=== PATIENT | female | born 1940 | race Hispanic/Latino ===

== ENCOUNTER 2017-08-27 19:40 | Inpatient (IN) | payer OTHER ==
[~2017-08-27] VITALS: Ht 144.8 cm; Wt 56.9 kg
[~2017-08-27 19:40] MED LIST: AMLO5TAB4 PO; ATOR40TA71 PO; BUSP15 PO; FENT25PAT TD; FLUO-125 PO; FURO40TA5 PO; INSU3INS3 SQ; LINA1TAB5 PO; LISI-617 PO; METO-391 PO; MIRT15TA6 PO; NITR0.4T SL; VENL-62 PO; XARELTO PO
[2017-08-27 21:03] LABS: APPEARANCE,URINE Clear (CLEAR); BILIRUBIN,URINE Negative (NEGATIVE); COLOR,URINE Yellow (YELLOW); GLUCOSE, URINE (UA) TRACE mg/dL (NEGATIVE); KETONES,URINE Negative (NEGATIVE); LEUKOCYTE ESTERASE ,URINE Negative (NEGATIVE); NITRATE,URINE Negative (NEGATIVE); OCCULT BLOOD,URINE Negative (NEGATIVE); PH,URINE 6.5 (5.0-8.0); PROTEIN,URINE Negative (NEGATIVE)
[2017-08-27 21:06] LABS: BASOPHILS % (AUTO) 0.1 % (0.0-5.0); EOSINOPHILS % (AUTO) 0.2 % (0.0-8.0); HEMATOCRIT 27.9 % (36-48); LYMPHOCYTES % (AUTO) 1.5 % (21.0-51.0); MEAN CORPUSCULAR HEMOGLOBIN 24.7 pg (27.0-33.0); MEAN CORPUSCULAR HGB CONC 32.5 g/dL (32.0-36.0); MEAN CORPUSCULAR VOLUME 76.1 fL (79-99); MONOCYTES % (AUTO) 3.5 % (3.0-13.0); NEUTROPHILS % (AUTO) 94.7 % (40.0-77.0); PLATELET COUNT (AUTO) 418 K/uL (130-400); RED BLOOD CELL COUNT(AUTO) 3.67 MIL/uL (4.00-5.50); RED CELL DISTRIBUTION WIDTH 17.9 % (11.0-15.5); WHITE BLOOD COUNT (AUTO) 14.4 K/uL (4.8-10.8)
[2017-08-27 21:10] LABS: CARBON DIOXIDE 33 mmol/L (21-32); CHLORIDE 94 mmol/L (101-111); CREATININE 0.9 mg/dL (0.5-1.5); GLOMERULAR FILTR. RATE CALC 65 mL/min (>60); GLUCOSE,RANDOM 157 mg/dL (70-105); POTASSIUM 3.5 mmol/L (3.5-5.1); SODIUM SERUM 135 mmol/L (136-145); UREA NITROGEN, BLOOD 11 mg/dL (7-18)
[2017-08-27 21:10] LABS: AMPHET/METH SCREEN,URINE NEGATIVE (NEGATIVE); BARBITURATE SCREEN, URINE NEGATIVE (NEGATIVE); BENZODIAZEPINES SCREEN,URINE NEGATIVE (NEGATIVE); CANNABINOID SCREEN,URINE NEGATIVE (NEGATIVE); COCAINE SCREEN,URINE NEGATIVE (NEGATIVE); OPIATE SCREEN,URINE NEGATIVE (NEGATIVE); PHENCYCLIDINE SCREEN,URINE NEGATIVE (NEGATIVE)
[2017-08-27 21:16] LABS: INR 1.22 (0.85-1.15); PARTIAL THROMBOPLASTIN TIME 32.7 SEC (26.3-35.5); PROTHROMBIN TIME 12.5 SEC (9.6-11.6)
[2017-08-27 21:24] LABS: ALANINE AMINOTRANSFERASE 20 U/L (12-78); ALBUMIN 1.9 g/dL (3.5-5.0); AMMONIA 11 umol/L (11-32); ASPARTATE AMINOTRANSFERASE 26 U/L (10-37); BILIRUBIN,TOTAL 0.4 mg/dL (0.2-1.0); CREATINE KINASE MB < 0.5 ng/mL (0.5-3.6); CREATINE KINASE, TOTAL 33 U/L (21-232); TOTAL PROTEIN, SERUM 8.1 g/dL (6.0-8.3)
[2017-08-27 21:25] LABS: BACTERIA,URINE None Seen /HPF (None Seen); RBC,URINE None Seen /HPF (0-1); WBC,URINE None Seen /HPF (0-1)
[2017-08-27 21:33] LABS: B-TYPE NATRIURETIC PEPTIDE 561 pg/mL (0-100)
[2017-08-27] MEDS ORDERED: LEVOFLOXACIN 500 MG/D5W 100 ML 100 ML ONE (22:27)
[2017-08-27] MEDS ORDERED: CEFTRIAXONE SODIUM 1 GM ONE (22:28)
[2017-08-28] MEDS ORDERED: ENOXAPARIN SODIUM 40 MG/0.4 ML SYRINGE SQ ONE (00:26)
[2017-08-28] MEDS ORDERED: ACETAMINOPHEN ELIXIR 650 MG/20.3 ML UDCUP ONE (00:26)
[2017-08-28 07:02] LABS: BASOPHILS % (AUTO) 0.4 % (0.0-5.0); HEMATOCRIT 23.7 % (36-48); LYMPHOCYTES % (AUTO) 4.1 % (21.0-51.0); MEAN CORPUSCULAR HEMOGLOBIN 26.1 pg (27.0-33.0); MEAN CORPUSCULAR HGB CONC 34.2 g/dL (32.0-36.0); MEAN CORPUSCULAR VOLUME 76.3 fL (79-99); NEUTROPHILS % (AUTO) 91.5 % (40.0-77.0); PLATELET COUNT (AUTO) 353 K/uL (130-400); RED BLOOD CELL COUNT(AUTO) 3.11 MIL/uL (4.00-5.50); RED CELL DISTRIBUTION WIDTH 18.1 % (11.0-15.5); WHITE BLOOD COUNT (AUTO) 16.6 K/uL (4.8-10.8)
[2017-08-28 07:26] LABS: ALBUMIN 1.6 g/dL (3.5-5.0); BILIRUBIN,TOTAL 0.4 mg/dL (0.2-1.0); CREATININE 0.9 mg/dL (0.5-1.5); POTASSIUM 3.4 mmol/L (3.5-5.1); TOTAL PROTEIN, SERUM 7.1 g/dL (6.0-8.3)
[2017-08-28] MEDS ORDERED: INSULIN HUMULIN R 100 UNIT/ML 3ML ONE ×2 (08:45→12:43)
[2017-08-28] MEDS ORDERED: ACETAMINOPHEN 325 MG TAB ONE (08:52)
[2017-08-28] MEDS: IPRATROPIUM/ALBUTEROL SULFATE 3 ML SOLUTION IH SCH (18:00)
[2017-08-28 18:37] VITALS: BP 145/71
[2017-08-28] MEDS ORDERED: DEXTROSE 50%-WATER 50 ML DISP.SYRIN IV PRN (18:45)
[2017-08-28] MEDS ORDERED: GLUCAGON 1MG KIT 1 MG ML IM PRN (18:45)
[2017-08-28 20:00] VITALS: BP 157/68
[2017-08-28] MEDS ORDERED: INSULIN HUMULIN R 100 UNIT/ML 3ML SQ SCH (21:00)
[2017-08-28] MEDS ORDERED: CEFTRIAXONE SODIUM 1 GM IV SCH (22:00)
[2017-08-28] MEDS ORDERED: SODIUM CHLORIDE 0.9% 500ML 500 ML IV ONE (22:19)
[2017-08-28] MEDS: CEFTRIAXONE SODIUM 1 GM IVP SCH (22:29)
[2017-08-28] MEDS: ACETAMINOPHEN 325 MG TAB PO PRN (22:30)
[2017-08-28] MEDS: LEVOFLOXACIN 500 MG/D5W 100 ML 100 ML IV SCH (22:30)
[2017-08-28] MEDS: ENOXAPARIN SODIUM 40 MG/0.4 ML SYRINGE SQ SCH (22:38)
[2017-08-28 23:51] VITALS: BP 149/62
[2017-08-29] MEDS: IPRATROPIUM/ALBUTEROL SULFATE 3 ML SOLUTION IH SCH ×5 (00:50→23:26)
[2017-08-29 03:51] VITALS: BP 120/56
[2017-08-29 05:10] LABS: BASOPHILS % (AUTO) 0.2 % (0.0-5.0); EOSINOPHILS % (AUTO) 0.5 % (0.0-8.0); LYMPHOCYTES % (AUTO) 9.7 % (21.0-51.0); MEAN CORPUSCULAR HEMOGLOBIN 25.5 pg (27.0-33.0); MEAN CORPUSCULAR HGB CONC 33.3 g/dL (32.0-36.0); MEAN CORPUSCULAR VOLUME 76.4 fL (79-99); MONOCYTES % (AUTO) 5.5 % (3.0-13.0); NEUTROPHILS % (AUTO) 84.1 % (40.0-77.0); PLATELET COUNT (AUTO) 374 K/uL (130-400); RED BLOOD CELL COUNT(AUTO) 3.14 MIL/uL (4.00-5.50); RED CELL DISTRIBUTION WIDTH 17.7 % (11.0-15.5); WHITE BLOOD COUNT (AUTO) 10.9 K/uL (4.8-10.8)
[2017-08-29 05:30] LABS: ALBUMIN 1.7 g/dL (3.5-5.0); BILIRUBIN,TOTAL 0.2 mg/dL (0.2-1.0); POTASSIUM 3.8 mmol/L (3.5-5.1); TOTAL PROTEIN, SERUM 7.3 g/dL (6.0-8.3)
[2017-08-29 07:54] VITALS: BP 156/54
[2017-08-29] MEDS ORDERED: POTASSIUM CHLORIDE 20 MEQ ERTAB PO PRN (08:15)
[2017-08-29] MEDS ORDERED: POTASSIUM CHLORIDE 10% ELIXIR 20 MEQ/15 ML UDCUP PO PRN (08:15)
[2017-08-29] MEDS ORDERED: LIDOCAINE HCL-MPF 1% 2ML VIAL IVP PRN (08:15)
[2017-08-29] MEDS ORDERED: POTASSIUM CHLORIDE 20MEQ/100ML 100 ML IV PRN (08:15)
[2017-08-29] MEDS ORDERED: FENTANYL 12 MCG TD SCH (09:00)
[2017-08-29] MEDS ORDERED: FENTANYL 25 MCG/HR PATCH TD SCH (09:00)
[2017-08-29] MEDS ORDERED: HYDR-85 PO (09:33)
[2017-08-29] MEDS ORDERED: ESOM20CA39 PO (09:33)
[2017-08-29] MEDS ORDERED: FENT-77 TD (09:33)
[2017-08-29] MEDS ORDERED: FURO40TA5 PO (09:33)
[2017-08-29] MEDS ORDERED: GABA-531 PO (09:33)
[2017-08-29] MEDS ORDERED: INSU100I26 SQ (09:33)
[2017-08-29] MEDS: ENOXAPARIN SODIUM 40 MG/0.4 ML SYRINGE SQ SCH (09:44)
[2017-08-29 11:34] VITALS: BP 123/58
[2017-08-29] MEDS: FLUOXETINE HCL 10 MG CAPSULE PO SCH (12:26)
[2017-08-29] MEDS: GABAPENTIN 300 MG CAPSULE PO SCH ×2 (12:26→20:08)
[2017-08-29] MEDS: LISINOPRIL 5 MG TABLET PO SCH (12:26)
[2017-08-29] MEDS: AMLODIPINE BESYLATE 5 MG TAB PO SCH (12:26)
[2017-08-29] MEDS: FUROSEMIDE 40 MG TABLET PO SCH (12:26)
[2017-08-29] MEDS: INSULIN LISPRO 100 UNIT/ML 3ML SQ SCH ×2 (12:44→17:23)
[2017-08-29 16:42] VITALS: BP 114/61
[2017-08-29] MEDS: HYDROCODONE/IBUPROFEN 7.5/200 MG TAB PO SCH (17:22)
[2017-08-29] MEDS: RIVAROXABAN 20 MG TABLET PO SCH (19:00)
[2017-08-29 20:00] VITALS: BP 117/56
[2017-08-29] MEDS: ACETAMINOPHEN 325 MG TAB PO PRN (20:07)
[2017-08-29] MEDS: METFORMIN HCL 500 MG TABLET PO SCH (20:07)
[2017-08-29] MEDS: BUSPIRONE HCL 5 MG TABLET PO SCH (20:08)
[2017-08-29] MEDS: LINAGLIPTIN 5 MG TABLET PO SCH (20:08)
[2017-08-29] MEDS: **HM** TOPROL XL 50MG PO SCH (20:09)
[2017-08-29] MEDS ORDERED: VENLAFAXINE HCL XR 37.5 MG CAP PO SCH (21:00)
[2017-08-29] MEDS ORDERED: MIRTAZAPINE 15 MG TABLET PO SCH (21:00)
[2017-08-29] MEDS ORDERED: ATORVASTATIN CALCIUM 40 MG TABLET PO SCH (21:00)
[2017-08-29 23:44] VITALS: BP 111/46
[2017-08-29] MEDS: LEVOFLOXACIN 500 MG/D5W 100 ML 100 ML IV SCH (23:54)
[2017-08-29] MEDS: CEFTRIAXONE SODIUM 1 GM IVP SCH (23:54)
[2017-08-30 04:00] VITALS: BP 114/68
[2017-08-30] MEDS: IPRATROPIUM/ALBUTEROL SULFATE 3 ML SOLUTION IH SCH ×3 (06:30→18:14)
[2017-08-30] MEDS ORDERED: PANTOPRAZOLE SODIUM 40 MG TABLET.DR PO SCH (07:30)
[2017-08-30 07:50] VITALS: BP 104/45
[2017-08-30] MEDS: INSULIN LISPRO 100 UNIT/ML 3ML SQ SCH ×2 (08:00→16:30)
[2017-08-30] MEDS ORDERED: INSULIN GLARGINE 100 UNITS/ML 10 ML VIAL SQ SCH (08:00)
[2017-08-30] MEDS ORDERED: LACTULOSE 20 GM/30 ML UDCUP PO PRN (08:15)
[2017-08-30 08:58] LABS: BASOPHILS % (AUTO) 0.2 % (0.0-5.0); EOSINOPHILS % (AUTO) 1.5 % (0.0-8.0); LYMPHOCYTES % (AUTO) 7.1 % (21.0-51.0); MEAN CORPUSCULAR HEMOGLOBIN 25.1 pg (27.0-33.0); MEAN CORPUSCULAR HGB CONC 32.8 g/dL (32.0-36.0); MEAN CORPUSCULAR VOLUME 76.4 fL (79-99); MONOCYTES % (AUTO) 5.3 % (3.0-13.0); NEUTROPHILS % (AUTO) 85.9 % (40.0-77.0); PLATELET COUNT (AUTO) 344 K/uL (130-400); RED BLOOD CELL COUNT(AUTO) 3.15 MIL/uL (4.00-5.50); RED CELL DISTRIBUTION WIDTH 17.4 % (11.0-15.5); WHITE BLOOD COUNT (AUTO) 9.9 K/uL (4.8-10.8)
[2017-08-30] MEDS ORDERED: FENTANYL 25 MCG/HR PATCH TD SCH (09:00)
[2017-08-30] MEDS: **HM** TOPROL XL 50MG PO SCH (09:00)
[2017-08-30] MEDS: AMLODIPINE BESYLATE 5 MG TAB PO SCH (09:00)
[2017-08-30] MEDS ORDERED: FENTANYL 12 MCG TP SCH (09:00)
[2017-08-30] MEDS: LISINOPRIL 5 MG TABLET PO SCH (09:00)
[2017-08-30 09:06] LABS: CREATININE 1.3 mg/dL (0.5-1.5); POTASSIUM 3.9 mmol/L (3.5-5.1)
[2017-08-30] MEDS: LINAGLIPTIN 5 MG TABLET PO SCH (09:32)
[2017-08-30] MEDS: METFORMIN HCL 500 MG TABLET PO SCH (09:32)
[2017-08-30] MEDS: HYDROCODONE/IBUPROFEN 7.5/200 MG TAB PO SCH (09:32)
[2017-08-30] MEDS: BUSPIRONE HCL 5 MG TABLET PO SCH (09:32)
[2017-08-30] MEDS: FUROSEMIDE 40 MG TABLET PO SCH (09:33)
[2017-08-30] MEDS: FLUOXETINE HCL 10 MG CAPSULE PO SCH (09:33)
[2017-08-30] MEDS: GABAPENTIN 300 MG CAPSULE PO SCH (09:33)
[2017-08-30 11:08] VITALS: BP 129/56
[2017-08-30 17:17] VITALS: BP 102/46
[2017-08-30] MEDS: RIVAROXABAN 20 MG TABLET PO SCH (18:27)
== END 2017-08-30 19:05 | disposition home health service (06) | DRG 190 ==
LOC: EDH 19:40 → EDHIP 23:10 → OBSVTOIN 23:10 → 3BH 08-28 18:04
PROVIDERS: ADMIT Internal Medicine; ATTEND Internal Medicine
DX: J44.0 Chronic obstructive pulmonary disease with (acute) lower respiratory infection (principal); J18.9 Pneumonia, unspecified organism; E11.22 Type 2 diabetes mellitus with diabetic chronic kidney disease; E11.42 Type 2 diabetes mellitus with diabetic polyneuropathy; E44.1 Mild protein-calorie malnutrition; E11.51 Type 2 diabetes mellitus with diabetic peripheral angiopathy without gangrene; E78.5 Hyperlipidemia, unspecified; I10 Essential (primary) hypertension; Z87.891 Personal history of nicotine dependence; I25.10 Atherosclerotic heart disease of native coronary artery without angina pectoris; N18.9 Chronic kidney disease, unspecified; D53.9 Nutritional anemia, unspecified; F03.90 Unspecified dementia, unspecified severity, without behavioral disturbance, psychotic disturbance, mood disturbance, and anxiety; Z89.612 Acquired absence of left leg above knee
CPT/HCPCS: 36415; 70450; 71045; 80048; 80053; 80305; 81001; 82140; 82550; 82553; 82947; 82948; 83605; 83880; 85025; 85610; 85730; 87040; 87186; 92610; 93005; 94640; 94664; A4218; J0696; J1650; J1815; J1956; J7040

== ENCOUNTER 2018-09-03 13:01 | Inpatient (IN) | payer OTHER | END 2018-09-08 14:42 | LOC: EDH 13:01 → EDHIP 16:50 → 3BH 20:46 → EDHIP 20:58 → 4BH 22:53 | DX: E11.649 Type 2 diabetes mellitus with hypoglycemia without coma (principal); J18.9 Pneumonia, unspecified organism; N39.0 Urinary tract infection, site not specified; E11.51 Type 2 diabetes mellitus with diabetic peripheral angiopathy without gangrene; I10 Essential (primary) hypertension; I25.10 Atherosclerotic heart disease of native coronary artery without angina pectoris ==

== ENCOUNTER 2018-12-25 04:01 | Observation (INO) | payer OTHER ==
[~2018-12-25] VITALS: Ht 152.4 cm; Wt 53.4 kg
[~2018-12-25 04:01] MED LIST changes: +ACET-2743 PO; -AMLO5TAB4 PO; -ATOR40TA71 PO; -BUSP15 PO; +BUSP5TAB3 PO; +FAMO20TA8 PO; +FENT12PAT TD; -FENT25PAT TD; -FLUO-125 PO; -FURO40TA5 PO; +GABA-531 PO; +GUAI-1211 PO; +INSU100I26 SQ; -INSU3INS3 SQ; -LINA1TAB5 PO; -LISI-617 PO; +LUBI8CAP PO; +MEMA5TAB15 PO; -METO-391 PO; -NITR0.4T SL; +PRED5TAB44 PO; +RIVA20TA PO; -VENL-62 PO; -XARELTO PO
[2018-12-25 04:35] LABS: BASOPHILS % (AUTO) 0.1 % (0.0-5.0); EOSINOPHILS % (AUTO) 0.2 % (0.0-8.0); HEMATOCRIT 28.7 % (36-48); LYMPHOCYTES % (AUTO) 5.3 % (21.0-51.0); MEAN CORPUSCULAR HEMOGLOBIN 29.2 pg (27.0-33.0); MEAN CORPUSCULAR HGB CONC 33.4 g/dL (32.0-36.0); MEAN CORPUSCULAR VOLUME 87.3 fL (79-99); MONOCYTES % (AUTO) 6.7 % (3.0-13.0); NEUTROPHILS % (AUTO) 87.7 % (40.0-77.0); PLATELET COUNT (AUTO) 315 K/uL (130-400); RED BLOOD CELL COUNT(AUTO) 3.28 MIL/uL (4.00-5.50); WHITE BLOOD COUNT (AUTO) 15.1 K/uL (4.8-10.8)
[2018-12-25] MEDS ORDERED: ONDANSETRON HCL 4 MG/2 ML VIAL ONE (04:41)
[2018-12-25] MEDS ORDERED: ACETAMINOPHEN 650 MG SUPPOSITORY RC ONE (04:42)
[2018-12-25 04:43] LABS: CREATININE 1.2 mg/dL (0.5-1.5); POTASSIUM 3.5 mmol/L (3.5-5.1)
[2018-12-25 04:47] LABS: ALBUMIN 1.8 g/dL (3.5-5.0); BILIRUBIN,DIRECT 0.2 mg/dL (0.0-0.3); BILIRUBIN,TOTAL 0.4 mg/dL (0.2-1.0); TOTAL PROTEIN, SERUM 7.5 g/dL (6.0-8.3)
[2018-12-25 05:07] LABS: APPEARANCE,URINE Cloudy (CLEAR); BILIRUBIN,URINE Negative (NEGATIVE); COLOR,URINE Yellow (YELLOW); GLUCOSE, URINE (UA) Negative (NEGATIVE); KETONES,URINE Trace mg/dL (NEGATIVE); LEUKOCYTE ESTERASE ,URINE Large (NEGATIVE); NITRATE,URINE Negative (NEGATIVE); OCCULT BLOOD,URINE Trace (NEGATIVE); PH,URINE 5.5 (5.0-8.0); PROTEIN,URINE POS 1+ mg/dL (NEGATIVE)
[2018-12-25 05:08] LABS: B-TYPE NATRIURETIC PEPTIDE 836 pg/mL (0-100)
[2018-12-25 05:17] LABS: BACTERIA,URINE Moderate /HPF (None Seen); WBC,URINE 26-50 /HPF (0-1); YEAST,URINE BUDDING Many /HPF (None Seen)
[2018-12-25 05:18] LABS: SQUAMOUS EPITHELIAL CELL,UR Moderate /HPF (0-2)
[2018-12-25] MEDS ORDERED: CLINDAMYCIN 600 MG/D5% WATER 50 ML IV ONE (05:40)
[2018-12-25] MEDS ORDERED: INSULIN HUMULIN R 100 UNIT/ML 3ML ONE (07:47)
[2018-12-25 08:12] VITALS: BP 121/51
[2018-12-25] MEDS ORDERED: TRAM50TA4 PO (08:14)
[2018-12-25] MEDS ORDERED: LINE600T14 PO (08:14)
[2018-12-25] MEDS ORDERED: GUAIFENESIN-CODEINE 5 ML SYRUP PO PRN (08:15)
[2018-12-25] MEDS ORDERED: ACETAMINOPHEN EXTRA STRENGTH 500 MG TABLET PO PRN (08:15)
--- NOTE | 2018-12-25 08:15 | NUR ---
Dr. Gonzalez rounding with patient. Patient arrived from ER in stable condition with at bedside. Pt/ oriented to room. Bed placed in lowest position. Call light placed within reach. History obtained mostly from . Patient is alert and awake in no apparent distress. Wound pictures and measurements taken and placed in chart.
[2018-12-25] MEDS ORDERED: CARB100C4 PO (08:28)
[2018-12-25] MEDS ORDERED: CLOP75TA32 PO (08:28)
[2018-12-25] MEDS ORDERED: FURO40TA5 PO (08:28)
[2018-12-25] MEDS ORDERED: LISI40TA4 PO (08:28)
[2018-12-25] MEDS ORDERED: NITR0.4T50 SL (08:28)
[2018-12-25] MEDS ORDERED: ATOR40TA69 PO (08:28)
[2018-12-25] MEDS ORDERED: PRED5TAB44 PO (08:28)
[2018-12-25] MEDS ORDERED: NITROGLYCERIN 0.4 MG SL TAB SL SCH (08:30)
[2018-12-25 08:33] LABS: INR 1.02 (0.85-1.15); PARTIAL THROMBOPLASTIN TIME 48.4 SEC (26.3-35.5); PROTHROMBIN TIME 10.7 SEC (9.6-11.6)
[2018-12-25] MEDS: CLOPIDOGREL BISULFATE 75 MG TAB PO SCH (09:00)
[2018-12-25] MEDS: LUBIPROSTONE 8 MCG PO SCH (09:00)
[2018-12-25] MEDS: RIVAROXABAN 20 MG TABLET PO SCH (09:00)
[2018-12-25] MEDS: CARBAMAZEPINE 200 MG TABLET PO SCH ×2 (09:00→21:00)
[2018-12-25] MEDS: LISINOPRIL 40 MG TABLET PO SCH ×3 (09:00→21:00)
[2018-12-25] MEDS ORDERED: ONDANSETRON ODT 4 MG TAB PO PRN (10:00)
[2018-12-25] MEDS: FUROSEMIDE 40 MG TABLET PO SCH (10:58)
[2018-12-25] MEDS: FAMOTIDINE 20MG TAB 20 MG TAB PO SCH (10:58)
[2018-12-25] MEDS: GABAPENTIN 300 MG CAPSULE PO SCH ×2 (10:58→21:00)
[2018-12-25] MEDS: PREDNISONE 5 MG TABLET PO SCH (11:01)
[2018-12-25] MEDS: MEMANTINE HCL 5 MG TABLET PO SCH (11:01)
[2018-12-25] MEDS: CEFEPIME HCL 2 GM VIAL IVP SCH ×2 (11:02→21:08)
[2018-12-25 11:10] VITALS: BP 135/60
[2018-12-25] MEDS ORDERED: POTASSIUM CHLORIDE 20MEQ/100ML 100 ML IV PRN (12:15)
[2018-12-25] MEDS ORDERED: INSULIN GLARGINE 100 UNITS/ML 10 ML VIAL SQ SCH (12:15)
[2018-12-25] MEDS ORDERED: POTASSIUM CHLORIDE 20 MEQ ERTAB PO PRN (12:15)
[2018-12-25] MEDS ORDERED: LIDOCAINE HCL-MPF 1% 2ML VIAL IVP PRN (12:15)
--- NOTE | 2018-12-25 13:26 | NUR ---
DC PLAN VISITED WITH PATIENT AND SPOUSE. PATIENT LIVES WITH SPOUSE. MATILDA SIGNED FOR [facility]. PER MD WILL NEED 2 WEEKS ABX. PENDING [facility] LINE. Addendum: 12/25/18 at 1327 by CAROLE HU RN CM Amended: Links added.
[2018-12-25] MEDS: CLINDAMYCIN 300 MG/D5W 50 ML 50 ML IV SCH ×2 (15:08→22:46)
[2018-12-25] MEDS: POTASSIUM CHLORIDE 10% ELIXIR 20 MEQ/15 ML UDCUP PO PRN (15:16)
[2018-12-25 15:31] VITALS: BP 158/85
--- NOTE | 2018-12-25 15:56 | NUR ---
[facility] CALLED SAID THAT PATIENT WANTS A PRIVATE ROOM NOT ABLE TO PROVIDE. PATIENT IN PROCEDURE. CALLED SPOUSE TO SEE ABOUT OTHER FACILITY. NO ANSWER LEFT MESSAGE. Addendum: 12/25/18 at 1558 by CAROLE HU RN CM Amended: Links added.
[2018-12-25] MEDS: INSULIN LISPRO 100 UNIT/ML 3ML SQ SCH (17:13)
--- NOTE | 2018-12-25 19:25 | NUR ---
PT WAKES UP AND OPENS EYES UPON SHAKING, NOT SPONTANEOUSLY. 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 WILL CONTINUE TO MONITOR. VITAL SIGNS STABLE.
[2018-12-25 20:15] VITALS: BP 101/47
--- NOTE | 2018-12-25 20:30 | NUR ---
UNABLE TO GIVE ORAL SCHEDULED MEDICATIONS. PT TOO SLEEPY AND RISK FOR ASPIRATION. WILL CONTINUE TO MONITOR AND WILL INFORM DR. AVILA.
[2018-12-25] MEDS ORDERED: MIRTAZAPINE 15 MG TABLET PO SCH (21:00)
[2018-12-25] MEDS ORDERED: ATORVASTATIN CALCIUM 40 MG TABLET PO SCH (21:00)
[2018-12-25] MEDS ORDERED: TRAMADOL HCL 50 MG TABLET PO SCH (21:00)
--- NOTE | 2018-12-25 21:00 | NUR ---
DEEJAY RN PICC LINE NURSE IN TO INSERT PICC LINE. TIME OUT DONE AT BEDSIDE.
--- NOTE | 2018-12-25 21:56 | NUR ---
DR. CORREA IN TO SEE PATIENT AND WOUND CARE/DRESSINGS CHANGED.
[2018-12-25 23:44] VITALS: BP 159/67
[2018-12-26] VITALS (21 sets, daily range): BP systolic 117–166; BP diastolic 47–66
[2018-12-26 04:21] LABS: ALBUMIN 1.6 g/dL (3.5-5.0); BILIRUBIN,TOTAL 0.3 mg/dL (0.2-1.0); CREATININE 1.1 mg/dL (0.5-1.5); POTASSIUM 3.7 mmol/L (3.5-5.1); TOTAL PROTEIN, SERUM 6.9 g/dL (6.0-8.3)
[2018-12-26 04:30] LABS: HEMATOCRIT 29.7 % (36-48); MEAN CORPUSCULAR HEMOGLOBIN 27.9 pg (27.0-33.0); MEAN CORPUSCULAR HGB CONC 31.4 g/dL (32.0-36.0); MEAN CORPUSCULAR VOLUME 88.7 fL (79-99); PLATELET COUNT (AUTO) 280 K/uL (130-400); RED BLOOD CELL COUNT(AUTO) 3.35 MIL/uL (4.00-5.50); WHITE BLOOD COUNT (AUTO) 14.8 K/uL (4.8-10.8)
[2018-12-26] MEDS: CLINDAMYCIN 300 MG/D5W 50 ML 50 ML IV SCH ×2 (05:38→15:03)
--- NOTE | 2018-12-26 05:47 | NUR ---
PT AWAKE , ALERT AND ORIENTED TO NAME AND PLACE. CONVERSING WITH HER SPOUSE AT BEDSIDE. STATES SHE FEELS TIRED BUT HAD A GOOD NIGHT REST.
[2018-12-26] MEDS: INSULIN LISPRO 100 UNIT/ML 3ML SQ SCH ×2 (06:00→18:43)
--- NOTE | 2018-12-26 06:50 | NUR ---
HELD SCHEDULED INSULIN DOSE FOR THIS MORNING--PT WILL BE GOING FOR SURGERY IN A FEW MINUTES AND NOT AT 5PM. INFORMED SPOUSE AND PT...VERBALIZED UNDERSTANDING.
--- NOTE | 2018-12-26 06:58 | NUR ---
TAKEN TO OR VIA BED. SPOUSE AT BEDSIDE.
[2018-12-26] MEDS ORDERED: SODIUM CHLORIDE 0.9% 1000ML 1,000 ML IV ONE (07:05)
--- NOTE | 2018-12-26 07:05 | NUR ---
IV ACCESS: DR. CORREA MADE AWARE OF GOOD BLOOD RETURN TO PICC LINE, REVIEWED CXR AND OK TO USE PICC LINE
[2018-12-26] MEDS ORDERED: LIDOCAINE HCL MPF 1% 5ML VIAL ONE (07:23)
[2018-12-26] MEDS ORDERED: PROPOFOL 10 MG/ML 20ML VIAL IV ONE (07:24)
[2018-12-26] MEDS ORDERED: INSULIN GLARGINE 100 UNITS/ML 10 ML VIAL SQ SCH (07:30)
[2018-12-26] MEDS ORDERED: LIDOCAINE HCL 1% MDV 50ML VIAL ONE (07:32)
[2018-12-26] MEDS ORDERED: BUPIVACAINE/PF 0.5% 30ML VIAL ONE (07:32)
[2018-12-26] MEDS: CARBAMAZEPINE 200 MG TABLET PO SCH (09:00)
[2018-12-26] MEDS: LUBIPROSTONE 8 MCG PO SCH (09:00)
[2018-12-26] MEDS: CLOPIDOGREL BISULFATE 75 MG TAB PO SCH (09:00)
[2018-12-26] MEDS: RIVAROXABAN 20 MG TABLET PO SCH (09:00)
[2018-12-26] MEDS: CEFEPIME HCL 2 GM VIAL IVP SCH (10:36)
[2018-12-26] MEDS: FAMOTIDINE 20MG TAB 20 MG TAB PO SCH (10:37)
[2018-12-26] MEDS: MEMANTINE HCL 5 MG TABLET PO SCH (10:37)
[2018-12-26] MEDS: GABAPENTIN 300 MG CAPSULE PO SCH (10:38)
[2018-12-26] MEDS: PREDNISONE 5 MG TABLET PO SCH (10:38)
[2018-12-26] MEDS: FUROSEMIDE 40 MG TABLET PO SCH (10:38)
[2018-12-26] MEDS: LISINOPRIL 40 MG TABLET PO SCH (10:48)
--- NOTE | 2018-12-26 11:25 | NUR ---
As per Dr. Mccord, wound vac duration 1mth. Notified Patient transferring to [facility] for continuation of care.
--- NOTE | 2018-12-26 15:42 | NUR ---
RODRIGUEZ ZACARIAS CALLED AT 1510 SAID PATIENT IS ACCEPTED. ASKED DIRECTOR OF SECOND FLOOR IF WOUND VAC CAN BE LENT UNTIL TOMORROW. SAID OKAY. PER RELL WILL BRING WOUND VAC BACK. PATIENT WILL GO VIA EMS DUE TO SAFETY AMPUTATION TO LEFT NEW DEBRIDEMENT TO THE RIGHT. NOT ABLE TO PLACE WEIGHT ON NEW WOUND. PASRR SENT. Addendum: 12/26/18 at 1544 by CAROLE HU RN CM Amended: Links added.
[2018-12-26] MEDS ORDERED: HYDROMORPHONE HCL 0.5 MG/0.5 ML ML IVP PRN (16:15)
[2018-12-26] MEDS ORDERED: MORPHINE SULFATE 2 MG/ML 1ML SYG IVP PRN (16:15)
[2018-12-26] MEDS: POTASSIUM CHLORIDE 10% ELIXIR 20 MEQ/15 ML UDCUP PO PRN (17:45)
--- NOTE | 2018-12-26 18:15 | NUR ---
Nikolas Brush notified of patient transfer.
--- NOTE | 2018-12-26 18:20 | NUR ---
Report called to Robin Marquez LVN at [facility]. Patient PCP Dr. Gonzalez. Notified antibiotics to continue for 2 weeks. Antibiotics reviewed with nurse. Notified patient will be going with wound vac. RICKIE Hernandez Director aware.
--- NOTE | 2018-12-26 18:49 | NUR ---
Dr. Gonzalez notified of Blood sugar 467. Patient continues sleeping and not eaten since lunch time. No new orders.
--- NOTE | 2018-12-26 19:30 | NUR ---
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 at bedside. Notified will continue same regimen at [facility]. Patient taken with wound vac.
== END 2018-12-26 20:15 ==
LOC: EDH 04:01 → INTOOBSV 05:35 → EDHIP 05:35 → 2DH 07:43 → 2AH 07:48
PROVIDERS: ADMIT Internal Medicine; ATTEND Internal Medicine
DX: E11.621 Type 2 diabetes mellitus with foot ulcer (principal); E11.51 Type 2 diabetes mellitus with diabetic peripheral angiopathy without gangrene; E11.69 Type 2 diabetes mellitus with other specified complication; E78.5 Hyperlipidemia, unspecified; I10 Essential (primary) hypertension; I25.10 Atherosclerotic heart disease of native coronary artery without angina pectoris; I99.8 Other disorder of circulatory system; L03.115 Cellulitis of right lower limb; L97.419 Non-pressure chronic ulcer of right heel and midfoot with unspecified severity; L97.519 Non-pressure chronic ulcer of other part of right foot with unspecified severity; M72.6 Necrotizing fasciitis; M86.9 Osteomyelitis, unspecified; Z86.73 Personal history of transient ischemic attack (TIA), and cerebral infarction without residual deficits; Z89.519 Acquired absence of unspecified leg below knee; Z95.0 Presence of cardiac pacemaker; Z95.1 Presence of aortocoronary bypass graft; Z79.899 Other long term (current) drug therapy; Z88.0 Allergy status to penicillin; Z88.1 Allergy status to other antibiotic agents
CPT/HCPCS: 11043; 11046; 36415 ×2; 70450; 71045 ×3; 73630; 80048; 80053; 80076; 81001; 82550; 82948 ×7; 83605; 83880; 84484; 85025; 85027; 85610; 85730; 87040; 87070 ×2; 87076 ×2; 87077 ×2; 87186 ×2; 88305; 93306; 93926; 96361; 96365; 96366; 96372 ×3; 96375 ×2; 96376 ×2; 99284; A6210; A6446; A9272; C1894; G0378 ×35; J0692 ×3; J1815; J2405; J2704; J3490 ×6; J7030; J7512 ×2

== ENCOUNTER 2019-01-01 01:35 | Inpatient (IN) | payer OTHER ==
[~2019-01-01] VITALS: Ht 157.5 cm; Wt 54.6 kg
[~2019-01-01 01:35] MED LIST changes: +ATOR40TA69 PO; -BUSP5TAB3 PO; +CARB100C4 PO; +CLOP75TA32 PO; -FENT12PAT TD; +FURO40TA5 PO; +LISI40TA4 PO; +NITR0.4T50 SL; +TRAM50TA4 PO
[2019-01-01] MEDS ORDERED: SODIUM CHLORIDE 0.9% 500ML 500 ML IV ONE (02:15)
[2019-01-01 02:19] LABS: EOSINOPHILS % (AUTO) 1.7 % (0.0-8.0); HEMATOCRIT 37.6 % (36-48); LYMPHOCYTES % (AUTO) 5.9 % (21.0-51.0); MEAN CORPUSCULAR HEMOGLOBIN 28.9 pg (27.0-33.0); MEAN CORPUSCULAR HGB CONC 32.2 g/dL (32.0-36.0); MEAN CORPUSCULAR VOLUME 89.7 fL (79-99); MONOCYTES % (AUTO) 6.3 % (3.0-13.0); NEUTROPHILS % (AUTO) 85.1 % (40.0-77.0); PLATELET COUNT (AUTO) 507 K/uL (130-400); RED BLOOD CELL COUNT(AUTO) 4.19 MIL/uL (4.00-5.50); RED CELL DISTRIBUTION WIDTH 15.7 % (11.0-15.5)
[2019-01-01 02:27] LABS: CREATININE 2.6 mg/dL (0.5-1.5); POTASSIUM 4.8 mmol/L (3.5-5.1)
[2019-01-01 02:29] LABS: INR 1.01 (0.85-1.15); PARTIAL THROMBOPLASTIN TIME 34.6 SEC (26.3-35.5); PROTHROMBIN TIME 10.6 SEC (9.6-11.6)
[2019-01-01 02:40] LABS: ALBUMIN 1.9 g/dL (3.5-5.0); BILIRUBIN,TOTAL 0.3 mg/dL (0.2-1.0); TOTAL PROTEIN, SERUM 8.9 g/dL (6.0-8.3)
[2019-01-01 02:41] LABS: APPEARANCE,URINE Turbid (CLEAR); BILIRUBIN,URINE Negative (NEGATIVE); COLOR,URINE Yellow (YELLOW); GLUCOSE, URINE (UA) Negative (NEGATIVE); KETONES,URINE Negative (NEGATIVE); LEUKOCYTE ESTERASE ,URINE Large (NEGATIVE); NITRATE,URINE Negative (NEGATIVE); OCCULT BLOOD,URINE Small (NEGATIVE); PH,URINE 5.5 (5.0-8.0); PROTEIN,URINE POS 1+ mg/dL (NEGATIVE); UROBILINOGEN,URINE 0.2 mg/dL (0.2-1.0)
[2019-01-01 02:55] LABS: BACTERIA,URINE None Seen /HPF (None Seen); SQUAMOUS EPITHELIAL CELL,UR Moderate /HPF (0-2); WBC,URINE 26-50 /HPF (0-1); YEAST,URINE BUDDING Moderate /HPF (None Seen)
[2019-01-01] MEDS ORDERED: ASPIRIN 300 MG SUPPOSITORY PR ONE (03:11)
[2019-01-01] MEDS ORDERED: VANCOMYCIN 1GM+NS 250ML 250 ML IV ONE (03:11)
[2019-01-01 08:43] VITALS: BP 107/45
[2019-01-01] MEDS: VANCOMYCIN 1GM+NS 250ML 250 ML IV SCH (09:00)
--- NOTE | 2019-01-01 10:57 | NUR ---
NPO, SHORT-TERM ALTERNATE MEANS OF NUTRITION/HYDRATION RECOMMENDED AT THIS TIME. Pt IS UNRESPONSIVE AND PER IS ABLE TO REMAIN AWAKE FOR MINUTES AT A TIME. NPO, SHORT TERM ALTERNATE MEANS OF NUTRITION/HYDRATION IS RECOMMENDED AT THIS TIME. RE-EVALUATION IS RECOMMENDED WHEN Pt IS ALERT AND COOPERATIVE. VERBALIZED AGREEMENT WITH RECOMMENDATIONS. CHEMICAL RECLAMATION EQUIPMENT OPERATOR COORDINATED CARE WITH NURSE RENETTA. Addendum: 01/01/19 at [address] Amended: Links added.
[2019-01-01 11:08] VITALS: BP 115/44
--- NOTE | 2019-01-01 13:50 | NUR ---
[facility] CONSULT PATIENT ASSESSED ORDERED: PATIENT PRESENTS WITH WOUND TO RIGHT FOOT: [facility] RECOMMENDATIONS SUBMITTED. Addendum: 01/01/19 at 1352 by ROMAN GODFREY LVN LVN W Amended: Links added.
[2019-01-01] MEDS: MEROPENEM 500 MG VIAL IVP SCH ×2 (14:35→22:00)
[2019-01-01 15:05] VITALS: BP 170/70
--- NOTE | 2019-01-01 15:10 | NUR ---
DC PLAN PATIENT BACK FROM [facility] WAS SENT THERE FOR 2 WEEKS ABX AND WOUND VAC. PER DR. AU PLAN OF CARE IS BETWEEN AMPUTATION AND HOSPICE. SPOUSE NOT READY FOR HOSPICE WANTS TO SEE WHAT DR. CORREA SAYS. DR CORREA AND DR. PEACE CONSULTED. IF NO TO HOSPICE OR AMPUTATION PROBABLY WILL RETURN TO [facility]. Addendum: 01/01/19 at 1513 by CAROLE HU RN CM Amended: Links added.
[2019-01-01] MEDS ORDERED: ACET650S14 RC (15:24)
[2019-01-01] MEDS ORDERED: INSLAN SQ (15:24)
[2019-01-01] MEDS ORDERED: DEXTROSE 50%-WATER 50 ML DISP.SYRIN IV PRN (16:15)
[2019-01-01] MEDS ORDERED: HYDRALAZINE HCL 20 MG/ML VIAL IM PRN (16:15)
[2019-01-01] MEDS ORDERED: GLUCAGON 1MG KIT 1 MG ML IM PRN (16:15)
--- NOTE | 2019-01-01 16:22 | NUR ---
RD Notification - Admit Protocol Pt NPO at this time. Possible hospice as per RN. SMASHER HAND attempt at evaluation. SMASHER HAND to re-eval tomorrow as per RN. Anthropometrics retrieved from previous admit. Unknown LBM. Pt monitored labs: Cl 98, BUN 49, Cr 2.6, GFR 19, Glu 142, AST 108, ALT 161, NH3 4, TCK 705, Alb 1.9. RD to follow up. Please notify as nutrition concerns arise. Thank you. Addendum: 01/01/19 at [address] Amended: Links added.
[2019-01-01] MEDS: INSULIN HUMULIN R 100 UNIT/ML 3ML SQ SCH ×2 (16:30→21:59)
[2019-01-01] MEDS: HYDRALAZINE HCL 20 MG/ML VIAL IV PRN ×2 (17:05→22:58)
[2019-01-01 17:43] VITALS: BP 153/57
[2019-01-01] MEDS: 1/2 NORMAL SALINE 1,000 ML IV SCH (20:16)
[2019-01-01] MEDS: MIRTAZAPINE 15 MG TABLET PO SCH (20:25)
[2019-01-01] MEDS: ATORVASTATIN CALCIUM 40 MG TABLET PO SCH (20:25)
[2019-01-01] MEDS: LISINOPRIL 40 MG TABLET PO SCH (20:25)
[2019-01-01 20:27] VITALS: BP 160/62
--- NOTE | 2019-01-01 22:00 | NUR ---
PT CONTINUES ON IV FLUIDS. 1/2 NS AT 50ML/HR. PT IS UNRESPONSIVE. AT BEDSIDE. SHE IS ABLE TO LOCALIZE PAIN. STARTING TO WAKE UP EVERY FEW HOURS. STATES SHE SEEMS LIKE SHE IS DOING BETTER. PICC LINE PATENT.
--- NOTE | 2019-01-01 23:30 | NUR ---
HYDRALAZINE GIVEN PRN DUE TO INCREASED BP SYSTOLIC OVER 160. PT STABLE.
[2019-01-02] VITALS (7 sets, daily range): BP systolic 123–172; BP diastolic 50–69
[2019-01-02] MEDS: VANCOMYCIN 1GM+NS 250ML 250 ML IV SCH (04:23)
[2019-01-02] MEDS: MEROPENEM 500 MG VIAL IVP SCH ×3 (05:55→20:36)
[2019-01-02] MEDS: INSULIN HUMULIN R 100 UNIT/ML 3ML SQ SCH ×4 (06:24→20:33)
[2019-01-02] MEDS: PREDNISONE 5 MG TABLET PO SCH (09:00)
[2019-01-02] MEDS: MEMANTINE HCL 5 MG TABLET PO SCH (09:00)
[2019-01-02] MEDS: FUROSEMIDE 40 MG TABLET PO SCH (09:00)
[2019-01-02] MEDS: LUBIPROSTONE 8 MCG PO SCH (09:00)
[2019-01-02] MEDS: RIVAROXABAN 20 MG TABLET PO SCH (09:00)
[2019-01-02] MEDS: LISINOPRIL 40 MG TABLET PO SCH ×2 (09:00→21:00)
[2019-01-02] MEDS: CLOPIDOGREL BISULFATE 75 MG TAB PO SCH (09:00)
[2019-01-02] MEDS: FAMOTIDINE 20MG TAB 20 MG TAB PO SCH (09:00)
--- NOTE | 2019-01-02 10:37 | NUR ---
FOLLOW UP COMPLETED. Pt CONTINUES TO BE DIFFICULT TO AROUSE. Pt WITH POOR ALERTNESS AT THIS TIME AND IS NOT SAFE FOR P.O. PLEASE CONSIDER CONTINUING NPO STATUS AT THIS WITH SUPPLEMENTED MEANS OF NUTRITION/HYDRATION. RECEIVING SPECIALIST COORDINATED CARE WITH NURSE JACKSON. Addendum: 01/02/19 at 1046 by ANNA AQUINO, SPT ST Amended: Links added.
--- NOTE | 2019-01-02 16:00 | NUR ---
TRANSFER TELEPHONE REPORT GIVEN TO Mariela ROCK RN.
[2019-01-02] MEDS: HYDRALAZINE HCL 20 MG/ML VIAL IV PRN (16:01)
--- NOTE | 2019-01-02 16:10 | NUR ---
Received patient from 2nd Floor [address]. Patient arrived in no distress with at bedside. O2 at 2LPM, PICC line to Right upper arm patent with 1/2 NS running. Patient is unresponsive. Arousable to pain. F/C patent. Bed placed to the lowest position. Call light placed within reach. Continue to monitor and assess.
--- NOTE | 2019-01-02 16:10 | NUR ---
TRANSFER PT TRANSFERRED VIA BED TO [facility]. TOLERATED WELL. NO DISTRESS NOTED.
--- NOTE | 2019-01-02 16:36 | NUR ---
HOSPICE EDUCATION Per nurse Prado, family requesting info on hospice. was informed today by heart MD that pt was not candidate for surgery related to heart and blow flow issues to lower extremities. Pt is high risk of survival from surgery. Sw met with pt and daughter at bedside. verbalized same information that nurse did. DAughter requesting education on hospice. Sw answered all questions asked and educated on hospice at home and hospice houses. states he wants pt to go home not a facility. Explained that Dr parekh has certain hospices that he wporks with and will continue to oversee pt's case. Family voiced understanding and will discuss with Dr Parekh in am. Sw to follow and assist as needed
--- NOTE | 2019-01-02 18:14 | NUR ---
Dr. Cano rounding at patient bedside. Discussed surgery with patient as patient is unable to wake up. Pt stated he is undecided at this time on surgery.
[2019-01-02] MEDS: 1/2 NORMAL SALINE 1,000 ML IV SCH ×2 (20:33)
[2019-01-02] MEDS: MIRTAZAPINE 15 MG TABLET PO SCH (21:00)
[2019-01-02] MEDS: ATORVASTATIN CALCIUM 40 MG TABLET PO SCH (21:00)
[2019-01-03] VITALS (7 sets, daily range): BP systolic 134–159; BP diastolic 46–75
[2019-01-03] MEDS: VANCOMYCIN 1GM+NS 250ML 250 ML IV SCH (03:14)
[2019-01-03 04:57] LABS: HEMATOCRIT 26.2 % (36-48); MEAN CORPUSCULAR HEMOGLOBIN 28.3 pg (27.0-33.0); MEAN CORPUSCULAR HGB CONC 31.5 g/dL (32.0-36.0); MEAN CORPUSCULAR VOLUME 90.1 fL (79-99); PLATELET COUNT (AUTO) 443 K/uL (130-400); RED BLOOD CELL COUNT(AUTO) 2.91 MIL/uL (4.00-5.50); RED CELL DISTRIBUTION WIDTH 15.6 % (11.0-15.5); WHITE BLOOD COUNT (AUTO) 12.9 K/uL (4.8-10.8)
[2019-01-03 05:07] LABS: POTASSIUM 4.3 mmol/L (3.5-5.1)
[2019-01-03] MEDS: INSULIN HUMULIN R 100 UNIT/ML 3ML SQ SCH ×4 (05:32→21:00)
[2019-01-03] MEDS: MEROPENEM 500 MG VIAL IVP SCH ×3 (06:01→22:13)
--- NOTE | 2019-01-03 08:30 | NUR ---
Dr. Carlos lee. Patient laying in bed. at bedside. Pt Unable to follow commands or open eyes. Bed to lowest position, call light within reach. very anxious, stating he is unsure if he make a decision about hospice. Continue to monitor Addendum: 01/03/19 at 1037 by JEFF ROCK RN RN Amended: Links added.
[2019-01-03] MEDS: LISINOPRIL 40 MG TABLET PO SCH ×2 (09:00→21:00)
[2019-01-03] MEDS: FAMOTIDINE 20MG TAB 20 MG TAB PO SCH (09:00)
[2019-01-03] MEDS: RIVAROXABAN 20 MG TABLET PO SCH (09:00)
[2019-01-03] MEDS: CLOPIDOGREL BISULFATE 75 MG TAB PO SCH (09:00)
[2019-01-03] MEDS: FUROSEMIDE 40 MG TABLET PO SCH (09:00)
[2019-01-03] MEDS: LUBIPROSTONE 8 MCG PO SCH (09:00)
[2019-01-03] MEDS: MEMANTINE HCL 5 MG TABLET PO SCH (09:00)
[2019-01-03] MEDS: PREDNISONE 5 MG TABLET PO SCH (09:00)
--- NOTE | 2019-01-03 11:38 | NUR ---
f/u visit Sw met with who states he is not going to be forced to make a decision until he gets a straight answer on 's condition. voiced frustration with having so many different opinions from doctors. feels doctors are basing their opinions off of cardiology reports from 2 years ago and questions if opinions are accurate without recent testing. states Dr Roldan said heart llok good yesterday. says he won't make a decision yet. Sw voiced understanding and provided emotional support. Nurse Danielle and SUYAPA aware of above
--- NOTE | 2019-01-03 12:53 | NUR ---
DYSPHAGIA EVAL COMPLETED. RECOMMEND NPO, SHORT-TERM ALTERNATE MEANS OF NUTRITION/HYDRATION. RECOMMENDATIONS" DYSPHAGIA THERAPY 1-3X WEEK TO INCREASE ORAL MOTOR STRENGTH AND PHARYNGEAL SWALLOW: LTG#1: Pt WILL TOLERATE LEAST RESTRICTIVE DIET TO MEET NUTRITION/HYDRATION WITH NO S/S OF ASPIRATION. LTG#2: SKILLED EDUCATION Pt/FAMILY/STAFF STG#1: Pt WILL PARTICIPATE IN LARYNGEAL ELEVATION/EXCURSION EXERCISES WITH 80% ACCURACY. STG#2: Pt WILL PARTICIPATE IN TONGUE BASE RETRACTION EXERCISES WITH 80% ACCURACY. STG#3: Pt WILL PARTICIPATE IN ORAL MOTOR EXERCISES WITH 80% ACCURACY. STG#4: Pt WILL PARTICIPATE IN PLEASURE FEEDS OF PUREED CONSISTENCY WITH NO S/S OF ASPIRATION. STG#5: Pt WILL BE ABLE TO PARTICIPATE IN MBSS AFTER 2-4 WEEKS OF THERAPEUTIC INTERVENTION. STG#6: SKILLED EDUCATION Pt/FAMILY/STAFF. Addendum: 01/03/19 at 1255 by ANNA AQUINO, DONITA ST Amended: Links added.
--- NOTE | 2019-01-03 16:15 | NUR ---
Dr. Cano Called and spoke with pt via phone. stated he still deciding on treatment option for surgery.
--- NOTE | 2019-01-03 17:00 | NUR ---
Notified Dr. Gonzalez, patient with several questions at this time and is anxious about treatment options for patient and will like to discuss patient care with him. Notified Dr. Gonzalez, Dr. Cano has spoken with patient about possible surgery to right leg and is now confused about patient condition. Dr. Gonzalez to address any questions in the am.
[2019-01-03] MEDS ORDERED: ACETAMINOPHEN 650 MG SUPPOSITORY RC ONE (17:02)
--- NOTE | 2019-01-03 17:56 | NUR ---
ROUNDING ON PATIENT. PATIENT IS AWAKE AND ALERT. UNABLE TO FOLLOW COMMANDS. UNABLE TO SPEAK.
[2019-01-03] MEDS ORDERED: ACETAMINOPHEN 650 MG SUPPOSITORY RC SCH (18:30)
[2019-01-03] MEDS: 1/2 NORMAL SALINE 1,000 ML IV SCH (18:47)
--- NOTE | 2019-01-04 02:06 | NUR ---
ABRAM DURBIN PATIENT REPORTS PAIN IN HER RIGHT LEG. NO PRN PAIN MED AVAILABLE AT THIS TIME. AUSTIN IS CNC SPECIALIST FOR [facility]. WAITING FOR CALL BACK. WILL CONTINUE TO MONITOR PATIENT.
[2019-01-04] MEDS: VANCOMYCIN 1GM+NS 250ML 250 ML IV SCH (03:59)
[2019-01-04 04:03] VITALS: BP 148/52
[2019-01-04 04:48] LABS: HEMATOCRIT 24.5 % (36-48); MEAN CORPUSCULAR HEMOGLOBIN 29.1 pg (27.0-33.0); MEAN CORPUSCULAR HGB CONC 32.7 g/dL (32.0-36.0); PLATELET COUNT (AUTO) 425 K/uL (130-400); RED BLOOD CELL COUNT(AUTO) 2.75 MIL/uL (4.00-5.50); RED CELL DISTRIBUTION WIDTH 15.2 % (11.0-15.5); WHITE BLOOD COUNT (AUTO) 10.6 K/uL (4.8-10.8)
[2019-01-04 04:56] LABS: POTASSIUM 4.4 mmol/L (3.5-5.1)
--- NOTE | 2019-01-04 06:03 | NUR ---
MD AUSTIN AVILA ADDRESSED AND ANSWERED PT'S 'S QUESTIONS. PT STATES HE HAS A LOT OF UNANSWERED QUESTIONS AND WANTS A MD TO CLARIFY WHAT CAN BE DONE FOR PT TO IMPROVE CURRENT HEALTH STATUS. 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 PT'S NOT WILLING TO PLACE PT ON HOSPICE AT THIS TIME HE VIEWS IT "PULLING THE PLUG". Addendum: 01/04/19 at 0909 by NATALIE ABREU RN RN AUSTIN ORDERED A CT OF THE HEAD W/O CONTRAST TO R/O A STROKE D/T AMS.
[2019-01-04] MEDS: INSULIN HUMULIN R 100 UNIT/ML 3ML SQ SCH ×3 (07:30→22:44)
[2019-01-04 07:45] VITALS: BP 140/57
[2019-01-04] MEDS: MEROPENEM 500 MG VIAL IVP SCH ×3 (08:39→22:40)
[2019-01-04] MEDS: PREDNISONE 5 MG TABLET PO SCH (09:00)
[2019-01-04] MEDS: FAMOTIDINE 20MG TAB 20 MG TAB PO SCH (09:00)
[2019-01-04] MEDS: CLOPIDOGREL BISULFATE 75 MG TAB PO SCH (09:00)
[2019-01-04] MEDS: MEMANTINE HCL 5 MG TABLET PO SCH (09:00)
[2019-01-04] MEDS: LISINOPRIL 40 MG TABLET PO SCH ×2 (09:00→21:00)
[2019-01-04] MEDS: RIVAROXABAN 20 MG TABLET PO SCH (09:00)
[2019-01-04] MEDS: FUROSEMIDE 10 MG/ML 4ML VIAL IVP SCH (10:08)
[2019-01-04 11:00] VITALS: BP 151/55
--- NOTE | 2019-01-04 14:15 | NUR ---
[facility] CONSULT DR. Glenny CORREA CONSULTED WITH PATIENT ON 01/03/2019; NO [facility] RECOMMENDATION SUBMITTED AT THIS TIME. Addendum: 01/04/19 at 1417 by ROMAN GODFREY LVN LVN W Amended: Links added.
--- NOTE | 2019-01-04 15:35 | NUR ---
RD Follow Up Note Pt NPO X 4 days. Recommend to advance diet as tolerated. Pt with increased nutritional needs secondary to delayed wound healing, R. Foot cellulitis with Stg. IV ulcer. Once diet advanced, Recommend to add 60mL ProMod BID, Ilya BID, Vitamin C, ZnSO4 for wound healing support. Pt monitored labs: BUN 31, GFR 57, Glu 186, Alb 1.9. RD to continue to monitor. Please notify RD as additional nutrition concerns arise. Thank you. Addendum: 01/04/19 at [address] Amended: Links added.
[2019-01-04] MEDS: LUBIPROSTONE 8 MCG PO SCH (15:44)
[2019-01-04 16:00] VITALS: BP 164/55
[2019-01-04] MEDS: 1/2 NORMAL SALINE 1,000 ML IV SCH (16:10)
[2019-01-04 20:00] VITALS: BP 197/74
[2019-01-04] MEDS: HYDRALAZINE HCL 20 MG/ML VIAL IV PRN (23:17)
[2019-01-05] VITALS: BP 164/57
[2019-01-05 04:00] VITALS: BP 140/53
[2019-01-05] MEDS: VANCOMYCIN 1GM+NS 250ML 250 ML IV SCH (04:00)
--- NOTE | 2019-01-05 05:36 | NUR ---
VANCO TROUGH VT 23.5. HOLDING 0400 DOSE. WILL FAX RESULTS TO PHARMACY.
[2019-01-05] MEDS: MEROPENEM 500 MG VIAL IVP SCH ×3 (06:03→22:04)
[2019-01-05] MEDS: INSULIN HUMULIN R 100 UNIT/ML 3ML SQ SCH ×4 (07:30→21:29)
[2019-01-05 08:00] VITALS: BP 102/55
[2019-01-05] MEDS: LUBIPROSTONE 8 MCG PO SCH (09:00)
[2019-01-05] MEDS: LISINOPRIL 40 MG TABLET PO SCH ×2 (09:00→21:01)
[2019-01-05] MEDS: PREDNISONE 5 MG TABLET PO SCH (11:32)
[2019-01-05] MEDS: CLOPIDOGREL BISULFATE 75 MG TAB PO SCH (11:32)
[2019-01-05] MEDS: MEMANTINE HCL 5 MG TABLET PO SCH (11:32)
[2019-01-05] MEDS: RIVAROXABAN 20 MG TABLET PO SCH (11:32)
[2019-01-05] MEDS: FAMOTIDINE 20MG TAB 20 MG TAB PO SCH (11:33)
[2019-01-05] MEDS: FUROSEMIDE 10 MG/ML 4ML VIAL IVP SCH (11:34)
[2019-01-05] MEDS: 1/2 NORMAL SALINE 1,000 ML IV SCH (11:36)
[2019-01-05 12:00] VITALS: BP 140/55
[2019-01-05 17:06] VITALS: BP 165/64
--- NOTE | 2019-01-05 19:55 | NUR ---
Nursing Note Pt sitting in bed with IV fluids infusing at this time. Not issues and no pain. Visitor at bedside.
[2019-01-05 20:00] VITALS: BP 100/51
[2019-01-06] VITALS: BP 101/59
[2019-01-06] MEDS: 1/2 NORMAL SALINE 1,000 ML IV SCH (03:39)
[2019-01-06 04:00] VITALS: BP 97/46
[2019-01-06] MEDS: MEROPENEM 500 MG VIAL IVP SCH ×3 (05:49→22:42)
[2019-01-06] MEDS: INSULIN HUMULIN R 100 UNIT/ML 3ML SQ SCH ×4 (06:26→20:38)
[2019-01-06 07:00] VITALS: BP 101/57
[2019-01-06] MEDS: LUBIPROSTONE 8 MCG PO SCH (09:00)
[2019-01-06] MEDS ORDERED: VANCOMYCIN 1GM+NS 250ML 250 ML IV SCH (09:00)
[2019-01-06] MEDS: CLOPIDOGREL BISULFATE 75 MG TAB PO SCH (10:13)
[2019-01-06] MEDS: VANCOMYCIN 1GM+NS 250ML 250 ML IV SCH (10:13)
[2019-01-06] MEDS: PREDNISONE 5 MG TABLET PO SCH (10:14)
[2019-01-06] MEDS: RIVAROXABAN 20 MG TABLET PO SCH (10:14)
[2019-01-06] MEDS: MEMANTINE HCL 5 MG TABLET PO SCH (10:14)
[2019-01-06] MEDS: FAMOTIDINE 20MG TAB 20 MG TAB PO SCH (10:14)
[2019-01-06] MEDS: FUROSEMIDE 10 MG/ML 4ML VIAL IVP SCH (10:14)
[2019-01-06] MEDS: LISINOPRIL 40 MG TABLET PO SCH ×2 (10:21→20:25)
[2019-01-06] MEDS: HONEY 1 APPL/ML TUBE TP SCH (10:22)
[2019-01-06 16:00] VITALS: BP 94/80
[2019-01-06 20:00] VITALS: BP 98/47
[2019-01-06] MEDS: VANCOMYCIN 500MG+NS 100ML 100 ML IV SCH (20:24)
[2019-01-07] VITALS: BP 99/40
[2019-01-07 04:00] VITALS: BP 106/55
[2019-01-07] MEDS: MEROPENEM 500 MG VIAL IVP SCH ×3 (06:05→22:37)
[2019-01-07] MEDS: INSULIN HUMULIN R 100 UNIT/ML 3ML SQ SCH ×4 (06:52→22:39)
[2019-01-07 08:00] VITALS: BP 151/61
[2019-01-07] MEDS: LUBIPROSTONE 8 MCG PO SCH (09:00)
--- NOTE | 2019-01-07 10:05 | NUR ---
DYSPHAGIA RE-EVAL COMPLETED. MILD OROPHARYNGEAL DYSPHAGIA. RECOMMEND PUREED, THIN LIQUIDS; PILLS CRUSHED WITH APPLESAUCE. Addendum: 01/07/19 at 1255 by ANNA AQUINO, [facility] ST Amended: Links added.
[2019-01-07] MEDS: CLOPIDOGREL BISULFATE 75 MG TAB PO SCH (10:12)
[2019-01-07] MEDS: FAMOTIDINE 20MG TAB 20 MG TAB PO SCH (10:12)
[2019-01-07] MEDS: MEMANTINE HCL 5 MG TABLET PO SCH (10:13)
[2019-01-07] MEDS: FUROSEMIDE 10 MG/ML 4ML VIAL IVP SCH (10:13)
[2019-01-07] MEDS: PREDNISONE 5 MG TABLET PO SCH (10:13)
[2019-01-07] MEDS: RIVAROXABAN 20 MG TABLET PO SCH (10:13)
[2019-01-07] MEDS: LISINOPRIL 40 MG TABLET PO SCH ×2 (10:13→22:36)
[2019-01-07] MEDS: VANCOMYCIN 500MG+NS 100ML 100 ML IV SCH ×2 (10:20→22:36)
[2019-01-07] MEDS: HONEY 1 APPL/ML TUBE TP SCH (10:20)
[2019-01-07 12:00] VITALS: BP 127/52
--- NOTE | 2019-01-07 14:27 | NUR ---
Dr. Briscoe called. No answer. Voice Message left. Pending Call back
[2019-01-07 16:00] VITALS: BP 140/55
[2019-01-07 20:30] VITALS: BP 167/69
[2019-01-07] MEDS: 1/2 NORMAL SALINE 1,000 ML IV SCH ×2 (22:36)
[2019-01-08] VITALS (7 sets, daily range): BP systolic 123–178; BP diastolic 60–80
[2019-01-08] MEDS: VANCOMYCIN 1GM+NS 250ML 250 ML IV SCH (04:00)
[2019-01-08] MEDS: MEROPENEM 500 MG VIAL IVP SCH ×3 (04:57→20:53)
[2019-01-08] MEDS: INSULIN HUMULIN R 100 UNIT/ML 3ML SQ SCH ×4 (05:31→20:52)
--- NOTE | 2019-01-08 08:00 | NUR ---
Hold AM vanco Dose as per Opina, Pharmacist
[2019-01-08] MEDS: LUBIPROSTONE 8 MCG PO SCH (09:00)
[2019-01-08] MEDS: VANCOMYCIN 500MG+NS 100ML 100 ML IV SCH ×2 (09:00→20:51)
[2019-01-08] MEDS: FUROSEMIDE 10 MG/ML 4ML VIAL IVP SCH (09:06)
--- NOTE | 2019-01-08 09:06 | NUR ---
Patient asleep. Shake patient to wake up but patient Unable to wake up. Patient tries to open her eyes but continues to sleep. at bedside. bed to lowest position. call light placed within reach. Addendum: 01/08/19 at 1124 by JEFF ROCK RN RN Amended: Links added.
--- NOTE | 2019-01-08 10:30 | NUR ---
Patient continues sleeping
--- NOTE | 2019-01-08 12:13 | NUR ---
CM Note: Spouse declined placement and hospice CM met with pt spouse discussed MD recommendation for [facility] placement, at this time pt still has so many questions. answered questions as much as possible, explained reason for placement as spouse is not ready for hospice. Spouse stated he wants to have pt stay here for now and will call daughters to speak to CM so that CM can explain to children the poc. Given CM [id number] to spouse once children in room. Primary nurse aware. CM to cont to follow up.
[2019-01-08] MEDS: CLOPIDOGREL BISULFATE 75 MG TAB PO SCH (13:23)
[2019-01-08] MEDS: PREDNISONE 5 MG TABLET PO SCH (13:23)
[2019-01-08] MEDS: LISINOPRIL 40 MG TABLET PO SCH ×2 (13:24→20:52)
[2019-01-08] MEDS: RIVAROXABAN 20 MG TABLET PO SCH (13:24)
[2019-01-08] MEDS: FAMOTIDINE 20MG TAB 20 MG TAB PO SCH (13:24)
[2019-01-08] MEDS: MEMANTINE HCL 5 MG TABLET PO SCH (13:24)
--- NOTE | 2019-01-08 14:26 | NUR ---
RD Follow Up Note Inadequate oral intake related to decreased appetite as evidenced by poor PO X3 days or more. Pt also with increased protein needs for wound healing support; Rec to add Ilya BID, Vitamin C, ZnSO4 for wound healing support. Rec to add Glucerna TID. Pt with no report of GI distress. Pt monitored labs: Glu 167. RD to continue to monitor. Please notify RD as nutritional concerns arise. Thank you. Addendum: 01/08/19 at [address] Amended: Links added.
--- NOTE | 2019-01-08 15:26 | NUR ---
DCP- SNF AT [facility] met with daughter who states she is not understanding why her dad is being told by SUYAPA Barrios that she needs decision by today on NH or hospice. [facility] explained that if was not agreeable to hospice, Dr Briscoe wrote order for NH and Sophie needs to begin the referral process because it can sometimes take 8 to 72 hrs for an answer. And since we are coming up on weekend we need to start it margarita. Daughter explained this to father and SW answered all questions he had. was agreeable to giving consent for referral to start. CM aware and signed consent is on the chart
--- NOTE | 2019-01-08 16:00 | NUR ---
CM Note: [facility] pending ins auth and acceptance Faxed order, clinicals, PT, and pasrr to [facility], confirmation received. Spoke to Jazzy, will come eval pt. EMS filled out and faxed for tomorrow in case pt receive auth, primary nurse to call [facility] once pt ready to DC. Pt pending ins auth and acceptance. Primary nurse aware. CM to cont to follow up.
[2019-01-08] MEDS: HYDRALAZINE HCL 20 MG/ML VIAL IV PRN (16:31)
[2019-01-08] MEDS: HONEY 1 APPL/ML TUBE TP SCH (20:50)
[2019-01-08] MEDS: 1/2 NORMAL SALINE 1,000 ML IV SCH (20:58)
[2019-01-09 04:18] VITALS: BP 190/114
[2019-01-09] MEDS: HYDRALAZINE HCL 20 MG/ML VIAL IV PRN (04:49)
[2019-01-09] MEDS: MEROPENEM 500 MG VIAL IVP SCH ×3 (05:36→22:15)
[2019-01-09] MEDS: INSULIN HUMULIN R 100 UNIT/ML 3ML SQ SCH ×4 (05:51→22:02)
[2019-01-09 07:00] VITALS: BP 121/59
[2019-01-09] MEDS: CLOPIDOGREL BISULFATE 75 MG TAB PO SCH (08:32)
[2019-01-09] MEDS: RIVAROXABAN 20 MG TABLET PO SCH (08:32)
[2019-01-09] MEDS: FUROSEMIDE 10 MG/ML 4ML VIAL IVP SCH (08:33)
[2019-01-09] MEDS: LISINOPRIL 40 MG TABLET PO SCH ×2 (08:33→22:12)
[2019-01-09] MEDS: FAMOTIDINE 20MG TAB 20 MG TAB PO SCH (08:33)
[2019-01-09] MEDS: PREDNISONE 5 MG TABLET PO SCH (08:33)
[2019-01-09] MEDS: MEMANTINE HCL 5 MG TABLET PO SCH (08:33)
[2019-01-09] MEDS ORDERED: ACETAMINOPHEN 325 MG TAB ONE (08:58)
[2019-01-09] MEDS: LUBIPROSTONE 8 MCG PO SCH (09:00)
[2019-01-09 09:07] LABS: HEMATOCRIT 29.4 % (36-48); MEAN CORPUSCULAR HEMOGLOBIN 28.3 pg (27.0-33.0); MEAN CORPUSCULAR HGB CONC 32.2 g/dL (32.0-36.0); MEAN CORPUSCULAR VOLUME 87.8 fL (79-99); PLATELET COUNT (AUTO) 336 K/uL (130-400); RED BLOOD CELL COUNT(AUTO) 3.35 MIL/uL (4.00-5.50); RED CELL DISTRIBUTION WIDTH 14.9 % (11.0-15.5); WHITE BLOOD COUNT (AUTO) 7.8 K/uL (4.8-10.8)
[2019-01-09 09:21] LABS: ALBUMIN 1.5 g/dL (3.5-5.0); BILIRUBIN,TOTAL 0.4 mg/dL (0.2-1.0); CREATININE 0.9 mg/dL (0.5-1.5); TOTAL PROTEIN, SERUM 6.8 g/dL (6.0-8.3); VANCOMYCIN LEVEL 20.2 mcg/mL (18.0-26.0)
[2019-01-09 09:24] LABS: POTASSIUM 2.7 mmol/L (3.5-5.1)
[2019-01-09 09:55] LABS: EOSINOPHILS % (MANUAL) 2 % (1-6); LYMPHOCYTES % (MANUAL) 23 % (22-44); MONOCYTES % (MANUAL) 5 % (2-9); SEGMENTED NEUTROPHILS % 70 % (40-70)
[2019-01-09 09:59] LABS: MAN.DIFF COMMENT-IMPRESSION MANUAL DIFFERENTIAL
[2019-01-09 10:00] LABS: PLATELET MORPHOLOGY COMMENT LARGE PLTS PRESENT
[2019-01-09] MEDS ORDERED: LIDOCAINE HCL MPF 1% 5ML VIAL ONE (10:04)
[2019-01-09] MEDS ORDERED: POTASSIUM CHLORIDE 10% ELIXIR 20 MEQ/15 ML UDCUP ONE (10:04)
[2019-01-09] MEDS ORDERED: POTASSIUM CHLORIDE 20MEQ/100ML 100 ML IV ONE (10:05)
[2019-01-09] MEDS ORDERED: LIDOCAINE HCL-MPF 1% 2ML VIAL IV PRN (10:15)
[2019-01-09] MEDS ORDERED: POTASSIUM CHLORIDE 10% ELIXIR 20 MEQ/15 ML UDCUP PO PRN (10:15)
[2019-01-09] MEDS: HONEY 1 APPL/ML TUBE TP SCH (10:18)
[2019-01-09] MEDS: VANCOMYCIN 500MG+NS 100ML 100 ML IV SCH ×2 (10:18→22:15)
[2019-01-09] MEDS: POTASSIUM CHLORIDE 20MEQ/100ML 100 ML IV PRN ×2 (10:19→14:45)
[2019-01-09 11:00] VITALS: BP 115/60
--- NOTE | 2019-01-09 11:14 | NUR ---
ABX clarification Left message with Dr. Briscoe re: duration of IV Merrem and Vanco. Pending his response. CD
[2019-01-09] MEDS: 1/2 NORMAL SALINE 1,000 ML IV SCH (12:00)
--- NOTE | 2019-01-09 12:09 | NUR ---
TREATMENT COMPLETED. S: Pt REQUIRED MAX COAXING TO AROUSE. AT BEDSIDE AT THE TIME OF THE SESSION. O: Pt CURRENTLY TARGETING SWALLOWING GOALS. RESULTS WERE FOLLOWS: STG#4: Pt WILL PARTICIPATE IN PLEASURE FEEDS OF MECHANICAL SOFT/CHOPPED WITH NO S/S OF ASPIRATION: Pt TOLERATE 4 OZ OF PEACHES WITH STRONG MASTICATION NOTED. Pt WITH INCREASED MASTICATION WITH SOME FATIGUE NOTED DURING THE TRIAL. STG#6: SKILLED EDUCATION Pt/FAMILY/STAFF: COMPLETED A: Pt WITH IMPROVED ACTIVITY TOLERANCE AND PARTICIPATION DURING TODAY'S SESSION. Pt CURRENTLY TOLERATING PUREED, THIN LIQUIDS WITH NO OVERT S/S OF ASPIRATION. Pt WITH IMPROVED P.O. INTAKE IN THE LAST DAYS WITH CONSISTENT P.O. P: RECOMMEND CONTINUED SKILLED SPEECH THERAPY TOLERATED BY Pt 3-5XWK. AIRPLANE PILOT COMMERCIAL REVIEWED PLAN OF CARE WITH Pt'S . HE VERBALIZED AGREEMENT AND COMPLIANCE WITH RECOMMENDATIONS. RECOMMEND CONTINUED THERAPEUTIC TRIALS OF ADVANCED TEXTURE OF MECHANICAL SOFT AT THIS TIME WITH DIET OF PUREED, THIN LIQUIDS; PILLS CRUSHED. AIRPLANE PILOT COMMERCIAL COORDINATED CARE WITH NURSE DEL RIO. Addendum: 01/09/19 at [address] Amended: Links added.
[2019-01-09 16:00] VITALS: BP 117/66
--- NOTE | 2019-01-09 16:54 | NUR ---
CM Note: [facility] pending ins auth Spoke to Jazzy, updated clinicals forwarded to insurance around lunch time. Pt pending ins auth. EMS arranged and faxed for today in case pt received auth late, primary nurse to call [facility] once pt ready to DC. Primary nurse aware. CM to cont to follow up.
[2019-01-09 20:00] VITALS: BP 105/57
[2019-01-10] VITALS: BP 114/54
[2019-01-10 04:00] VITALS: BP 120/68
[2019-01-10] MEDS: MEROPENEM 500 MG VIAL IVP SCH (05:52)
[2019-01-10] MEDS: INSULIN HUMULIN R 100 UNIT/ML 3ML SQ SCH ×4 (06:36→21:06)
[2019-01-10 08:00] VITALS: BP 129/55
[2019-01-10] MEDS: 1/2 NORMAL SALINE 1,000 ML IV SCH (08:00)
[2019-01-10] MEDS: LUBIPROSTONE 8 MCG PO SCH (09:00)
--- NOTE | 2019-01-10 09:17 | NUR ---
CARL at bedside informed he needs to bring this medication from home. he stated this medication does not work for her and requests to administer something else, he states for example, lactulose, which he states was given to patient in her last admission. Not ordered on this admission. Will page Dr. Briscoe for orders. states her last good bowel movement was at the long term.
--- NOTE | 2019-01-10 09:28 | NUR ---
DR. BRISCOE Paged him to his cell phone, [phone]; no answer. Left message to call nurse at [phone]; orders needed. Also clled his office, no answer; left voicemail at his nurse's station for him to call nurse to give orders for report that patient has had no BM in many days. Pending for Dr. Briscoe to call back.
--- NOTE | 2019-01-10 09:33 | NUR ---
DR. GONZALEZ Contacted Dr. Gonzalez's office; no answer. Left voicemail requesting a call back as orders are needed for no BM in many days.
[2019-01-10] MEDS: FUROSEMIDE 10 MG/ML 4ML VIAL IVP SCH (09:50)
[2019-01-10] MEDS: VANCOMYCIN 500MG+NS 100ML 100 ML IV SCH (09:50)
[2019-01-10] MEDS: LISINOPRIL 40 MG TABLET PO SCH (09:51)
[2019-01-10] MEDS: FAMOTIDINE 20MG TAB 20 MG TAB PO SCH (09:51)
[2019-01-10] MEDS: PREDNISONE 5 MG TABLET PO SCH (09:51)
[2019-01-10] MEDS: RIVAROXABAN 20 MG TABLET PO SCH (09:51)
[2019-01-10] MEDS: POTASSIUM CHLORIDE 20 MEQ ERTAB PO PRN ×2 (09:51→17:39)
[2019-01-10] MEDS: CLOPIDOGREL BISULFATE 75 MG TAB PO SCH (09:52)
[2019-01-10] MEDS: MEMANTINE HCL 5 MG TABLET PO SCH (09:52)
[2019-01-10] MEDS: HONEY 1 APPL/ML TUBE TP SCH (09:53)
--- NOTE | 2019-01-10 10:00 | NUR ---
TREATMENT COMPLETED. S: Pt REQUIRED MAX COAXING TO AROUSE. AT BEDSIDE AT THE TIME OF THE SESSION. O: Pt CURRENTLY TARGETING SWALLOWING GOALS. RESULTS WERE FOLLOWS: STG#4: Pt WILL PARTICIPATE IN PLEASURE FEEDS OF MECHANICAL SOFT/CHOPPED WITH NO S/S OF ASPIRATION: Pt TOLERATE 4 OZ OF MIXED TEXTURE WITH STRONG MASTICATION NOTED. STG#6: SKILLED EDUCATION Pt/FAMILY/STAFF: COMPLETED A: Pt WITH IMPROVED ACTIVITY TOLERANCE AND PARTICIPATION DURING TODAY'S SESSION. Pt CURRENTLY TOLERATING PUREED, THIN LIQUIDS WITH NO OVERT S/S OF ASPIRATION. Pt WITH IMPROVED P.O. INTAKE IN THE LAST DAYS WITH CONSISTENT P.O. P: RECOMMEND CONTINUED SKILLED SPEECH THERAPY TOLERATED BY Pt 3-5XWK. PAPER FOLDER REVIEWED PLAN OF CARE WITH Pt'S . HE VERBALIZED AGREEMENT AND COMPLIANCE WITH RECOMMENDATIONS. RECOMMEND DUET UPGRADE TO: MECHANICAL SOFT/GROUND, THIN LIQUIDS; PILLS CRUSHED. PAPER FOLDER COORDINATED CARE WITH NURSE GENTILE. Addendum: 01/10/19 at 1146 by DONITA JAIME Amended: Links added.
--- NOTE | 2019-01-10 11:18 | NUR ---
CM Note: [facility] pending ins auth Spoke to Jazzy came to see pt, pt still pending ins auth at this time. EMS arranged and faxed for today, primary nurse to call [facility] once pt ready to DC. Primary nurse aware. CM to cont to follow up.
[2019-01-10 12:00] VITALS: BP 132/57
--- NOTE | 2019-01-10 14:50 | NUR ---
CM Note: [facility] pending ins auth Spoke to Jazzy Baez. Pt still pending ins auth at this time. EMS arranged and faxed for today in case pt receive auth late, primary nurse to call [facility] once pt ready to DC. Primary nurse aware. CM to cont to follow up.
--- NOTE | 2019-01-10 15:44 | NUR ---
CM Note: Maddy ins auth Spoke to Jazzy Baez, pt has ins auth. EMS arranged and faxed for today, primary nurse to call [facility] once pt ready to DC. Primary nurse aware. CM to cont to follow up.
[2019-01-10 16:00] VITALS: BP 166/80
[2019-01-10] MEDS ORDERED: LACTULOSE 20 GM/30 ML UDCUP ONE (17:33)
[2019-01-10 20:00] VITALS: BP 133/69
--- NOTE | 2019-01-10 20:27 | NUR ---
DISCHARGE Obtained orders for discharge and to give lactulose and SNF to follow up on bowel movement. Did discharge. gave report to nurse Jan Durand LVN at [facility]. Willian, incoming nurse, updated. Pending for ambulance to be called and to arrive. Medication Reconciliation Sheet was faxed to [facility] [place] as requested by Jan by jaun Romero
[2019-01-10] MEDS ORDERED: LACTULOSE 20 GM/30 ML UDCUP PO SCH (21:00)
[2019-01-11] MEDS ORDERED: VANCOMYCIN 750MG + NS 250 ML IV SCH ×2 (11:00)
== END 2019-01-10 21:05 | DRG 871 ==
LOC: EDH 01:35 → INTOOBSV 03:27 → OBSVTOIN 03:27 → EDHIP 03:27 → 2AH 08:03 → 3DH 01-02 16:19
PROVIDERS: ADMIT Internal Medicine; ATTEND Internal Medicine
DX: A41.9 Sepsis, unspecified organism (principal); G93.41 Metabolic encephalopathy; N39.0 Urinary tract infection, site not specified; L02.611 Cutaneous abscess of right foot; L03.115 Cellulitis of right lower limb; N18.5 Chronic kidney disease, stage 5; I13.2 Hypertensive heart and chronic kidney disease with heart failure and with stage 5 chronic kidney disease, or end stage renal disease; L97.419 Non-pressure chronic ulcer of right heel and midfoot with unspecified severity; E11.52 Type 2 diabetes mellitus with diabetic peripheral angiopathy with gangrene; E86.0 Dehydration; D63.8 Anemia in other chronic diseases classified elsewhere; R09.02 Hypoxemia; E11.621 Type 2 diabetes mellitus with foot ulcer; E11.22 Type 2 diabetes mellitus with diabetic chronic kidney disease; E11.42 Type 2 diabetes mellitus with diabetic polyneuropathy; E78.5 Hyperlipidemia, unspecified; F03.90 Unspecified dementia, unspecified severity, without behavioral disturbance, psychotic disturbance, mood disturbance, and anxiety; I25.10 Atherosclerotic heart disease of native coronary artery without angina pectoris; I35.0 Nonrheumatic aortic (valve) stenosis; I44.30 Unspecified atrioventricular block; I48.0 Paroxysmal atrial fibrillation; I50.9 Heart failure, unspecified; J44.9 Chronic obstructive pulmonary disease, unspecified; Z16.12 Extended spectrum beta lactamase (ESBL) resistance; B96.1 Klebsiella pneumoniae [K. pneumoniae] as the cause of diseases classified elsewhere; L97.519 Non-pressure chronic ulcer of other part of right foot with unspecified severity; Z93.1 Gastrostomy status; I25.2 Old myocardial infarction; Z74.01 Bed confinement status; Z88.1 Allergy status to other antibiotic agents; Z89.519 Acquired absence of unspecified leg below knee; Z89.612 Acquired absence of left leg above knee; Z95.0 Presence of cardiac pacemaker; Z95.1 Presence of aortocoronary bypass graft; Z88.0 Allergy status to penicillin; Z86.73 Personal history of transient ischemic attack (TIA), and cerebral infarction without residual deficits; Z88.2 Allergy status to sulfonamides; Z88.8 Allergy status to other drugs, medicaments and biological substances
CPT/HCPCS: 36415; 70450; 80048; 80053; 80202; 81001; 82140; 82550; 82948; 84132; 84484; 85025; 85027; 85610; 85730; 87040; 87088; 92526; 92610; 93005; G0378; J0360; J1815; J1940; J2185; J3370; J3480; J3490; J7040; J7512

== ENCOUNTER 2019-03-16 17:44 | Emergency (ER) | payer OTHER ==
[~2019-03-16 17:44] MED LIST changes: +ACET650S14 RC; -CARB100C4 PO; +CARB100C9 PO; +INSLAN SQ
[2019-03-16] MEDS ORDERED: CLINDAMYCIN HCL 150 MG CAP ONE (18:27)
== END 2019-03-16 18:56 | disposition home or self-care (01) ==
LOC: EDH 17:44
DX: L03.317 Cellulitis of buttock (principal); I25.810 Atherosclerosis of coronary artery bypass graft(s) without angina pectoris; E11.9 Type 2 diabetes mellitus without complications; I10 Essential (primary) hypertension; Z86.73 Personal history of transient ischemic attack (TIA), and cerebral infarction without residual deficits; Z89.612 Acquired absence of left leg above knee; Z89.511 Acquired absence of right leg below knee; Z87.891 Personal history of nicotine dependence; Z88.2 Allergy status to sulfonamides; Z88.1 Allergy status to other antibiotic agents; Z88.0 Allergy status to penicillin
CPT/HCPCS: 82948